=== PATIENT | male | born 1945 | race Caucasian/White ===

== ENCOUNTER 2016-12-24 12:05 | Inpatient (IN) | payer MEDICARE ==
--- NOTE | 2016-12-24 12:54 | ED ---
Dizziness HPI - General Chief Complaint: Dizziness Stated Complaint: Low Pulse-sent by Time Seen by Provider: 12/24/16 12:22 Source: patient, RN notes reviewed Mode of arrival: ambulatory Limitations: no limitations - History of Present Illness Initial Comments: This is a 71-year-old male with a history of hypertension states she's had dizziness for the past several days. He has any chest pain fevers chills nausea vomiting. He did state he recently started taking a double dose of his blood pressure medication he is also notices urine output is gone down last 2 days. He denies any other complaints at this time all over no chest pain fevers chills sweats no prior history of bradycardia. He was sent over from his doctor's office where he was noted to have a low heart rate. MD Complaint: dizziness - Related Data Home Medications Medication Instructions Recorded Confirmed Atorvastatin [Lipitor] 40 mg PO DAILY 01/29/15 01/29/15 Escitalopram [Lexapro] 20 mg PO DAILY 01/29/15 01/29/15 Folic Acid 0.4 mg PO DAILY 01/29/15 01/29/15 HYDROcodone/APAP 10-325MG [[place] 1 tab PO Q6H PRN 01/29/15 01/29/15 10] Isosorbide Mononitrate ER [Imdur] 30 mg PO DAILY 01/29/15 01/29/15 LORazepam [Ativan] 1 mg PO BID 01/29/15 01/29/15 Losartan Potassium [Cozaar] 100 mg PO DAILY 01/29/15 01/29/15 Nadolol 80 mg PO DAILY 01/29/15 01/29/15 Pantoprazole Sodium 20 mg PO DAILY 01/29/15 01/29/15 sulfaSALAzine [Azulfidine] 1,500 mg PO DAILY 01/29/15 01/29/15 Allergies Allergy/AdvReac Type Severity Reaction Status Date / Time tetracycline AdvReac FLARES UP Verified 12/24/16 12:07 CROHN'S Review of Systems ROS Statement: Those systems with pertinent positive or pertinent negative responses have been documented in the HPI. ROS Other: All systems not noted in ROS Statement are negative. Past Medical History Past Medical History: Coronary Artery Disease (CAD), Heart Failure, GERD/Reflux , Hypertension, Sleep Apnea/CPAP/BIPAP History of Any Multi-Drug Resistant Organisms: None Reported Past Surgical History: Appendectomy, Bowel Resection, Heart Catheterization, Tonsillectomy Additional Past Surgical History / Comment(s): bowel resection for Chron's disease with appendectomy included. Fractured left ankle in past. Past Anesthesia/Blood Transfusion Reactions: No Reported Reaction Past Psychological History: No Psychological Hx Reported Smoking Status: Former smoker Past Alcohol Use History: Daily Past Drug Use History: None Reported General Exam - General Exam Comments Initial Comments: This is a well-developed well-nourished awake alert oriented 3 male Limitations: no limitations General appearance: alert, in no apparent distress Head exam: Present: atraumatic, normocephalic, normal inspection Eye exam: Present: normal appearance, PERRL, EOMI. Absent: scleral icterus, conjunctival injection, periorbital swelling ENT exam: Present: normal exam, mucous membranes moist Neck exam: Present: normal inspection. Absent: tenderness, meningismus, lymphadenopathy Respiratory exam: Present: normal lung sounds bilaterally. Absent: respiratory distress, wheezes, rales, rhonchi, stridor Cardiovascular Exam: Present: normal rhythm, bradycardia, normal heart sounds. Absent: systolic murmur, diastolic murmur, rubs, gallop, clicks GI/Abdominal exam: Present: soft, normal bowel sounds. Absent: distended, tenderness, guarding, rebound, rigid Extremities exam: Present: normal inspection, full ROM, normal capillary refill. Absent: tenderness, pedal edema, joint swelling, calf tenderness Back exam: Present: normal inspection Neurological exam: Present: alert, oriented X3, CN II-XII intact Psychiatric exam: Present: normal affect, normal mood Skin exam: Present: warm, dry, intact, normal color. Absent: rash Course Vital Signs 12/24/16 12/24/16 12:08 13:15 Temperature 97.0 F L Pulse Rate 29 L 26 L Respiratory 18 16 Rate Blood Pressure 117/59 O2 Sat by Pulse 99 99 Oximetry - Reevaluation(s) Reevaluation #1: 12/24/16 13:52 Reevaluation revealed no change in patient's status. Reevaluation #2: 12/24/16 13:52 Patient did have pacer pads applied with the generator a bedside EKG Findings - EKG Results: EKG: interpreted by JOY (EKG shows evidence of a third-degree heart block with a rate of 28 QRS 136 daily since QTC is 702/478 red bundle-branch block pattern this appears consistent with the one submitted from his doctor's office.) Medical Decision Making - Medical Decision Making I did reevaluate patient several occasions he has no symptoms at this time. His heart rate still remains in the high 20s and low 30s. I did discuss the case with cardiology and with the admitting physician. Patient will be admitted for evaluation of third-degree heart block and bradycardia. - Lab Data Result diagrams: 12/24/16 12:39 12/24/16 12:39 Lab Results 12/24/16 12/24/16 12/24/16 Range/Units 12:39 12:39 12:39 WBC (3.8-10.6) k/uL RBC (4.30-5.90) m/uL Hgb (13.0-17.5) gm/dL Hct (39.0-53.0) % MCV (80.0-100.0) fL MCH (25.0-35.0) pg MCHC (31.0-37.0) g/dL RDW (11.5-15.5) % Plt Count (150-450) k/uL Neutrophils % % Lymphocytes % % Monocytes % % Eosinophils % % Basophils % % Neutrophils # (1.3-7.7) k/uL Lymphocytes # (1.0-4.8) k/uL Monocytes # (0-1.0) k/uL Eosinophils # (0-0.7) k/uL Basophils # (0-0.2) k/uL PT 10.9 (9.0-12.0) sec INR 1.1 (<1.2) APTT 23.4 (22.0-30.0) sec D-Dimer 0.69 H (<0.60) mg/L FEU Sodium 141 (137-145) mmol/L Potassium 4.5 (3.5-5.1) mmol/L Chloride 108 H (98-107) mmol/L Carbon Dioxide 25 (22-30) mmol/L Anion Gap 8 mmol/L BUN 20 (9-20) mg/dL Creatinine 1.05 (0.66-1.25) mg/dL Est GFR (MDRD) Af Amer >60 (>60 ml/min/1.73 sqM) Est GFR (MDRD) Non-Af >60 (>60 ml/min/1.73 sqM) Glucose 112 H (74-99) mg/dL Calcium 9.2 (8.4-10.2) mg/dL Magnesium 2.0 (1.6-2.3) mg/dL Total Bilirubin 0.9 (0.2-1.3) mg/dL AST 38 (17-59) U/L ALT 81 H (21-72) U/L Alkaline Phosphatase 59 (38-126) U/L Total Creatine Kinase 53 L (55-170) U/L CK-MB (CK-2) 0.7 (0.0-2.4) ng/mL CK-MB (CK-2) Rel Index 1.3 Troponin I <0.012 (0.000-0.034) ng/mL Total Protein 6.9 (6.3-8.2) g/dL Albumin 4.0 (3.5-5.0) g/dL TSH 2.070 (0.465-4.680) mIU/L 12/24/16 Range/Units 12:39 WBC 9.5 (3.8-10.6) k/uL RBC 4.51 (4.30-5.90) m/uL Hgb 15.0 (13.0-17.5) gm/dL Hct 43.5 (39.0-53.0) % MCV 96.6 (80.0-100.0) fL MCH 33.3 (25.0-35.0) pg MCHC 34.4 (31.0-37.0) g/dL RDW 13.2 (11.5-15.5) % Plt Count 179 (150-450) k/uL Neutrophils % 66 % Lymphocytes % 25 % Monocytes % 6 % Eosinophils % 2 % Basophils % 0 % Neutrophils # 6.2 (1.3-7.7) k/uL Lymphocytes # 2.3 (1.0-4.8) k/uL Monocytes # 0.6 (0-1.0) k/uL Eosinophils # 0.1 (0-0.7) k/uL Basophils # 0.0 (0-0.2) k/uL PT (9.0-12.0) sec INR (<1.2) APTT (22.0-30.0) sec D-Dimer (<0.60) mg/L FEU Sodium (137-145) mmol/L Potassium (3.5-5.1) mmol/L Chloride (98-107) mmol/L Carbon Dioxide (22-30) mmol/L Anion Gap mmol/L BUN (9-20) mg/dL Creatinine (0.66-1.25) mg/dL Est GFR (MDRD) Af Amer (>60 ml/min/1.73 sqM) Est GFR (MDRD) Non-Af (>60 ml/min/1.73 sqM) Glucose (74-99) mg/dL Calcium (8.4-10.2) mg/dL Magnesium (1.6-2.3) mg/dL Total Bilirubin (0.2-1.3) mg/dL AST (17-59) U/L ALT (21-72) U/L Alkaline Phosphatase (38-126) U/L Total Creatine Kinase (55-170) U/L CK-MB (CK-2) (0.0-2.4) ng/mL CK-MB (CK-2) Rel Index Troponin I (0.000-0.034) ng/mL Total Protein (6.3-8.2) g/dL Albumin (3.5-5.0) g/dL TSH (0.465-4.680) mIU/L - Radiology Data Radiology results: report reviewed (I did review the imaging and report no acute findings.), image reviewed Critical Care Time Critical Care Time: Yes Critical Care Time: 35 minutes of critical care time which includes monitoring the patient with initial history physical labs x-rays reevaluation the patient response to therapy. Discussion with the admitting service and consult. Admission orders and documentation of the above. Disposition Clinical Impression: Third degree heart block, Dizziness Disposition: ADMITTED IP TO THIS HOSP Condition: Stable Referrals: Patrick Davis MD [Primary Care Provider] - 1-2 days
[2016-12-24 12:56] LABS: Basophils % (A) 0 %; CH 32.7; Eosinophils # (A) 0.1 k/uL (0-0.7); Eosinophils % (A) 2 %; HCT 43.5 % (39.0-53.0); HDW 2.31; Luc % (Auto) 2; Lymphocytes # (A) 2.3 k/uL (1.0-4.8); Lymphocytes % (A) 25 %; MCH 33.3 pg (25.0-35.0); MCHC 34.4 g/dL (31.0-37.0); MCV 96.6 fL (80.0-100.0); Mean Platelet Volume 8.2; Monocytes # (A) 0.6 k/uL (0-1.0); Monocytes % (A) 6 %; Neutrophils # (A) 6.2 k/uL (1.3-7.7); Neutrophils % (A) 66 %; RBC 4.51 m/uL (4.30-5.90); RDW 13.2 % (11.5-15.5); WBC 9.5 k/uL (3.8-10.6); WBC (Perox) 9.88
[2016-12-24 13:01] LABS: ALT 81 U/L (21-72); AST 38 U/L (17-59); Alkaline Phosphatase 59 U/L (38-126); Anion Gap 8 mmol/L; Blood Urea Nitrogen 20 mg/dL (9-20); Calcium 9.2 mg/dL (8.4-10.2); Carbon Dioxide 25 mmol/L (22-30); Chloride 108 mmol/L (98-107); Glucose 112 mg/dL (74-99); Non-African American GFR(MDRD) >60 (>60 ml/min/1.73 sqM); Potassium 4.5 mmol/L (3.5-5.1); Sodium 141 mmol/L (137-145); Total Bilirubin 0.9 mg/dL (0.2-1.3); Total Protein 6.9 g/dL (6.3-8.2)
[2016-12-24 13:04] LABS: INR 1.1 (<1.2); Partial Thromboplastin Time 23.4 sec (22.0-30.0); Prothrombin Time 10.9 sec (9.0-12.0)
--- NOTE | 2016-12-24 13:10 | XR ---
EXAMINATION TYPE: XR chest 1V portable DATE OF EXAM: 12/24/2016 COMPARISON: January 29, 2015 HISTORY: Shortness of breath TECHNIQUE: Frontal and lateral views of the chest are obtained. FINDINGS: Scattered senescent parenchymal changes noted. Hyperinflation compatible with COPD. No evidence for infiltrate. No evidence for atelectasis. There is continued cardiomegaly. Mediastinal structures are stable and grossly unremarkable. No evidence for hilar prominence. Degenerative changes dorsal spine. IMPRESSION: 1. No evidence for acute pulmonary disease.
[2016-12-24 13:16] LABS: Creatine Kinase 53 U/L (55-170)
[2016-12-24 13:27] LABS: Creatine Kinase MB 0.7 ng/mL (0.0-2.4); Troponin I <0.012 ng/mL (0.000-0.034)
[2016-12-24] MEDS ORDERED: NALOXONE 0.4 MG/ML 1 ML VIAL IV PRN (13:55)
[2016-12-24] MEDS ORDERED: SODIUM CHLORIDE 0.9% 1,000 ML IV SCH (14:00)
--- NOTE | 2016-12-24 14:56 | P.CRDCN ---
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 He thought it was related to the heat, but finally went to see primary care physician today. Patient was found to be bradycardic and was referred to the emergency room. His EKG here confirmed presence of complete AV block with underlying rhythm showing right bundle-branch block pattern. Patient 's blood pressure is stable. He claims that in the past. He was told that he had left bundle-branch block pattern. He had cardiac cath about a year ago and apparently no significant issues were found at the time. Patient claims that he needs to be on nadolol for control of his intentional tremors. His heart rate is in the 20-30 range. We will proceed with a temporary pacemaker and possible permanent pacemaker within next 24-48 hours. 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 He denies any chest pain and doesn't appear to be having any difficulty with breathing at this time. Review of Systems REVIEW OF SYSTEMS: CONSTITUTIONAL:.. Alert, oriented and doesn't appear to be in acute distress. EYES: Denies diplopia, blurring of vision EARS, NOSE, MOUTH, THROAT: Denies headaches, denies sore throat. CARDIOVASCULAR: Denies chest pain, denies shortness of breath, denies palpitations RESPIRATORY: Denies shortness of breath, denies cough. GASTROINTESTINAL: Denies change in appetite, denies abdominal pain, denies diarrhea GENITOURINARY: Denies hematuria, denies infections. MUSKULOSKELETAL: Denies pain, denies swelling. Denies any cramps or claudication INTEGUMENTARY: Denies rash, denies eczema. NEUROLOGICAL: Denies focal weakness, or visual disturbance. Denies any dizziness or syncope PSYCHIATRIC: Denies anxiety, denies depression. HEMATOLOGIC/LYMPHATIC: Denies any bleeding, denies enlarged lymph nodes. Past Medical History Past Medical History: Coronary Artery Disease (CAD), Heart Failure, GERD/Reflux , Hypertension, Sleep Apnea/CPAP/BIPAP History of Any Multi-Drug Resistant Organisms: None Reported Past Surgical History: Appendectomy, Bowel Resection, Heart Catheterization, Tonsillectomy Additional Past Surgical History / Comment(s): bowel resection for Chron's disease with appendectomy included. Fractured left ankle in past. Past Anesthesia/Blood Transfusion Reactions: No Reported Reaction Past Psychological History: No Psychological Hx Reported Smoking Status: Former smoker Past Alcohol Use History: Daily Past Drug Use History: None Reported Medications and Allergies Home Medications Medication Instructions Recorded Confirmed Type Atorvastatin [Lipitor] 40 mg PO DAILY 01/29/15 12/24/16 History Escitalopram [Lexapro] 20 mg PO DAILY 01/29/15 12/24/16 History Isosorbide Mononitrate ER [Imdur] 30 mg PO DAILY 01/29/15 12/24/16 History LORazepam [Ativan] 1 mg PO TID 01/29/15 12/24/16 History Losartan Potassium [Cozaar] 100 mg PO DAILY 01/29/15 12/24/16 History Nadolol 80 mg PO DAILY 01/29/15 12/24/16 History Pantoprazole Sodium 20 mg PO DAILY 01/29/15 12/24/16 History sulfaSALAzine [Azulfidine] 1,500 mg PO DAILY 01/29/15 12/24/16 History Clopidogrel [Plavix] 75 mg PO DAILY 12/24/16 12/24/16 History Furosemide [Lasix] 40 mg PO DAILY 12/24/16 12/24/16 History oxyCODONE HCL/ACETAMINOPHEN 1 tab PO Q6HR PRN 12/24/16 12/24/16 History [Percocet 5-325 mg] Allergies Allergy/AdvReac Type Severity Reaction Status Date / Time tetracycline AdvReac FLARES UP Verified 12/24/16 12:07 CROHN'S Physical Exam Vitals: Vital Signs Temp Pulse Pulse Resp BP Pulse Ox 12/24/16 14:00 29 L 18 152/103 99 12/24/16 13:15 26 L 16 117/59 99 12/24/16 13:00 29 L 12/24/16 12:41 26 L 18 121/59 98 12/24/16 12:31 28 L 18 128/62 99 12/24/16 12:08 97.0 F L 29 L 18 99 Intake and Output 12/23/16 12/24/16 12/24/16 22:59 06:59 14:59 Other: Weight 104.326 kg Patient Weight 12/25/16 06:59 Weight 104.326 kg GENERAL EXAM: Patient is alert and oriented and doesn't appear to be in any acute distress HEENT: Normocephalic. Normal reaction of pupils, equal size, normal range of extraocular motion. No erythema or exudates in the throat. NECK: No masses, no nuchal rigidity. CHEST: No chest wall deformity. LUNGS: Equal air entry with no crackles or wheeze. HEART: S1 and S2 normal with no audible mumurs or gallops. Regular rhythm, femorals equal on both sides.. ABDOMEN: No hepatosplenomegaly, normal bowel sounds, no guarding or rigidity. SKIN: No rashes CENTRAL NERVOUS SYSTEM: No focal deficits. EXTREMITIES: No cyanosis, clubbing or edema. Results 12/24/16 12:39 12/24/16 12:39 Cardiac Enzymes 12/24/16 12/24/16 Range/Units 12:39 12:39 AST 38 (17-59) U/L CK-MB (CK-2) 0.7 (0.0-2.4) ng/mL Troponin I <0.012 (0.000-0.034) ng/mL Coagulation 12/24/16 Range/Units 12:39 PT 10.9 (9.0-12.0) sec APTT 23.4 (22.0-30.0) sec CBC 12/24/16 Range/Units 12:39 WBC 9.5 (3.8-10.6) k/uL RBC 4.51 (4.30-5.90) m/uL Hgb 15.0 (13.0-17.5) gm/dL Hct 43.5 (39.0-53.0) % Plt Count 179 (150-450) k/uL Comprehensive Metabolic Panel 12/24/16 Range/Units 12:39 Sodium 141 (137-145) mmol/L Potassium 4.5 (3.5-5.1) mmol/L Chloride 108 H (98-107) mmol/L Carbon Dioxide 25 (22-30) mmol/L BUN 20 (9-20) mg/dL Creatinine 1.05 (0.66-1.25) mg/dL Glucose 112 H (74-99) mg/dL Calcium 9.2 (8.4-10.2) mg/dL AST 38 (17-59) U/L ALT 81 H (21-72) U/L Alkaline Phosphatase 59 (38-126) U/L Total Protein 6.9 (6.3-8.2) g/dL Albumin 4.0 (3.5-5.0) g/dL Current Medications Generic Name Dose Route Start Last Admin Trade Name Freq PRN Reason Stop Dose Admin Sodium Chloride 1,000 mls @ 20 mls/hr 12/24/16 14:00 Saline 0.9% IV .Q24H AVA Naloxone HCl 0.2 mg 12/24/16 13:55 Narcan IV Q2M PRN Opioid Reversal Intake and Output 12/23/16 12/24/16 12/24/16 22:59 06:59 14:59 Other: Weight 104.326 kg Patient Weight 12/25/16 06:59 Weight 104.326 kg 12/24/16 12:39 12/24/16 12:39 EKG Interpretations (text) Complete AV dissociation with underlying ventricular rhythm showing right bundle -branch block Assessment and Plan (1) Ischemic heart disease Status: Acute (2) Dizziness Status: Acute (3) Third degree heart block Status: Acute (4) History of coronary artery stent placement Status: Acute (5) Essential tremor Status: Acute Plan: We will proceed with a temporary pacemaker today. We'll get an echocardiogram done. 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 Most probably proceed with permanent pacemaker within next 24-48 hours.
[2016-12-24] MEDS ORDERED: LIDOCAINE 2% INJ 20 MG/ML (20 ML MDV) ONE (15:03)
[2016-12-24] MEDS ORDERED: LIDOCAINE 2% INJ 20 MG/ML SQ ONE (15:19)
[2016-12-24] MEDS ORDERED: ceFAZolin 2 GM in SODIUM CHLORIDE 0.9% 100 ML IVPB ONE (15:52)
--- NOTE | 2016-12-24 15:56 | P.PCN ---
Date of Procedure: 12/24/16 Preoperative Diagnosis: Complete AV dissociation Postoperative Diagnosis: The same Procedure(s) Performed: Temporary pacemaker implantation Implants: Indications for Procedure: Operative Findings: Description of Procedure: This 71-year-old gentleman presented to the emergency room with complete AV dissociation and dizziness. Patient was brought to the lab in a fasting state. He was prepped and draped in the usual fashion. The right groin is infiltrated with lidocaine. Right femoral vein was entered using Seldinger technique. A 6-[place]ian sheath was advanced and placed in the femoral vein. A 5- [place] balloontipped temporary pacemaker wire was advanced and was placed near the apex of the ventricle. Satisfactory pacing thresholds were obtained. The lead was sutured to the floor. Patient is transferred to intensive care unit for further monitoring. Final impression. Successful implantation of temporal pacemaker. Plan: Permanent pacemaker implantation in the morning.
[2016-12-24 18:29] LABS: Glucose,Whole Blood 130 mg/dL (75-99)
[2016-12-24 18:55] LABS: Appearance,Urine Cloudy (Clear); Bacteria,Urine Many /hpf; Bilirubin,Urine Negative (Negative); Glucose,Urine (UA) Negative (Negative); Ketones,Urine Negative (Negative); Leukocyte Esterase,Urine Small (Negative); Mucus,Urine Rare /hpf; Nitrite,Urine Positive (Negative); PH, Urine 5.5 (5.0-8.0); Particle Count 32051; Protein,Urine Trace (Negative); RBC,Urine <1 /hpf (0-5); Specific Gravity,Urine 1.015 (1.001-1.035); Squamous Epithelial Cell,Urine <1 /hpf (0-4); UA Billing (MACRO vs. MICRO) MICRO; Urobilinogen,Urine <2.0 mg/dL (<2.0); WBC,Urine 7 /hpf (0-5)
[2016-12-24] MEDS: oxyCODONE-APAP 5-325MG 1 EACH TAB PO PRN (19:26)
[2016-12-24] MEDS: SODIUM CHLORIDE 0.9% 1,000 ML IV SCH ×2 (19:27)
[2016-12-24] MEDS: LORazepam 1 MG TAB PO SCH ×2 (19:28→22:07)
[2016-12-24 20:28] LABS: Anion Gap 9 mmol/L; Blood Urea Nitrogen 23 mg/dL (9-20); Carbon Dioxide 21 mmol/L (22-30); Chloride 110 mmol/L (98-107); Glucose 149 mg/dL (74-99); Non-African American GFR(MDRD) >60 (>60 ml/min/1.73 sqM); Potassium 4.1 mmol/L (3.5-5.1); Sodium 140 mmol/L (137-145)
[2016-12-24 21:32] VITALS: BMI 34.9
[2016-12-25] MEDS ORDERED: LORazepam 1 MG TAB PO PRN (00:45)
[2016-12-25] MEDS: oxyCODONE-APAP 5-325MG 1 EACH TAB PO PRN ×3 (01:28→16:04)
[2016-12-25] MEDS: ACETAMINOPHEN TAB 325 MG TAB PO PRN ×2 (02:37→15:01)
[2016-12-25] MEDS: PANTOPRAZOLE 40 MG TABLET PO SCH (05:04)
[2016-12-25] MEDS: ATORVASTATIN 40 MG TAB PO SCH (05:05)
[2016-12-25] MEDS: ESCITALOPRAM 20 MG TAB PO SCH (05:05)
[2016-12-25] MEDS: LORazepam 1 MG TAB PO SCH ×3 (05:06→21:58)
[2016-12-25] MEDS: sulfaSALAzine 500 MG TAB PO SCH (05:06)
[2016-12-25] MEDS: FUROSEMIDE 40 MG TAB PO SCH ×2 (05:06→13:12)
[2016-12-25] MEDS: LOSARTAN 50 MG TAB PO SCH (05:06)
[2016-12-25] MEDS: ISOSORBIDE MONONITRATE ER 30 MG TAB.ER.24H PO SCH (05:06)
[2016-12-25 05:23] LABS: Basophils % (A) 0 %; CHCM 32.9; Eosinophils # (A) 0.1 k/uL (0-0.7); Eosinophils % (A) 1 %; HCT 41.8 % (39.0-53.0); HDW 2.23; HGB 14.1 gm/dL (13.0-17.5); Luc # (Auto) 0.12; Luc % (Auto) 1; Lymphocytes # (A) 1.5 k/uL (1.0-4.8); Lymphocytes % (A) 15 %; MCHC 33.7 g/dL (31.0-37.0); MCV 100.8 fL (80.0-100.0); Macrocytosis Slight; Mean Platelet Volume 8.6; Monocytes # (A) 0.6 k/uL (0-1.0); Monocytes % (A) 7 %; Neutrophils # (A) 7.5 k/uL (1.3-7.7); Neutrophils % (A) 76 %; RBC 4.15 m/uL (4.30-5.90); RDW 14.2 % (11.5-15.5); WBC 9.8 k/uL (3.8-10.6); WBC (Perox) 10.09
[2016-12-25 05:33] LABS: Blood Urea Nitrogen 21 mg/dL (9-20); Calcium 8.8 mg/dL (8.4-10.2); Carbon Dioxide 24 mmol/L (22-30); Glucose 106 mg/dL (74-99); Non-African American GFR(MDRD) >60 (>60 ml/min/1.73 sqM); Potassium 4.3 mmol/L (3.5-5.1); Sodium 141 mmol/L (137-145)
[2016-12-25 05:37] LABS: Anion Gap 8 mmol/L; Chloride 109 mmol/L (98-107)
[2016-12-25] MEDS ORDERED: ceFAZolin 1,000 MG in SODIUM CHLORIDE 0.9% IRRIGATIO 250 ML IRRIGATION ONE (06:30)
[2016-12-25] MEDS ORDERED: ceFAZolin 2 GM in SODIUM CHLORIDE 0.9% 100 ML IVPB ONE (06:30)
--- NOTE | 2016-12-25 07:28 | XR ---
EXAMINATION TYPE: XR chest 1V portable DATE OF EXAM: 12/25/2016 HISTORY: Line placement. REFERENCE: Previous study dated 12/24/2016. FINDINGS: The heart is enlarged. The lungs are clear. Pleural space are clear. IMPRESSION: CONTINUING CARDIOMEGALY.
[2016-12-25] MEDS ORDERED: IV FLUID CONTINUATION 1,000 ML IV ONE ×2 (07:29)
[2016-12-25] MEDS ORDERED: fentaNYL (PF) 50 MCG/ML 2 ML AMP ONE (07:42)
[2016-12-25] MEDS ORDERED: MIDAZOLAM 2 MG/2 ML VIAL ONE (07:42)
[2016-12-25] MEDS ORDERED: MIDAZOLAM 2 MG/2 ML VIAL IV ONE (08:00)
[2016-12-25] MEDS: fentaNYL (PF) 50 MCG/ML 2 ML AMP IV ONE ×3 (08:01→09:17)
[2016-12-25] MEDS ORDERED: LIDOCAINE 1% INJ 10MG/ML (20 ML MDV) SQ ONE (08:11)
[2016-12-25] MEDS: LIDOCAINE 1% INJ 10MG/ML (20 ML MDV) SQ ONE ×2 (08:18→08:51)
--- NOTE | 2016-12-25 09:28 | P.PCN ---
Date of Procedure: 12/25/16 Preoperative Diagnosis: Complete A-V dissociation and the severe bradycardia Postoperative Diagnosis: The same Procedure(s) Performed: Axillary venography, dual-chamber permanent pacemaker implantation under fluoroscopy. Implants: Indications for Procedure: Operative Findings: Description of Procedure: HISTORY: This is a 71-year-old gentleman with history of ischemic heart disease with previous bypass surgery and stent placement who presented to the emergency room with complaints of dizziness and evidence of complete AV block. Patient has a right bundle branch pattern escape rhythm. He gives history of having left bundle-branch block, in the past. Patient is also being treated with nadolol for essential tremor and also for ischemic heart disease. Patient is advised to have permanent pacemaker implantation. Patient had a temporary pacemaker, Yesterday. CONSENT:I have discussed the risks, benefits and alternative therapies for the above-mentioned procedure and for both sedation/analgesia as well as necessary blood product administration, if indicated, as they pertain to this patient. The patient has indicated understanding and acceptance of the risks and procedures discussed.. CONSCIOUS SEDATION: Patient was given IV Versed 1 mg and fentanyl 100 g. The duration of the sedation was 51 minutes. PROCEDURE: Patient was brought to the lab in a fasting state. Patient was prepped and draped in the usual fashion. Patient was given IV sedation with fentanyl and Versed. The skin below the left clavicle was infiltrated with lidocaine. An incision was made parallel to deltopectoral groove was deepened until the pectoral fascia was exposed. A pocket was created by blunt dissection and cautery. Axillary venography was performed to delineate the course of the axillary vein. 2 sticks were performed into extrathoracic portion of the axillary vein and 2 sheaths were advanced over the guidewires and left in subclavian vein. LEADS: ATRIAL: This is manufactured by [email or web address]. Model number is 7741. And the serial number is [id number] VENTRICULAR: [This is manufactured by [email or web address]. Model number is 7742. Serial number is [id number] The ventricular lead is maneuvered l with help of a straight and curved stylets into the left ventricle apical region. Satisfactory position was obtained and threshold measurements were made. The atrial lead was then maneuvered into the right atrial appendage. And thresholds were obtained. THRESHOLDS: ATRIUM: . The minimum patient threshold is a 0.6 V at pulse width of 0.5 ms. Impedance is 725 ohms. P-wave: 4.3 mV VENTRICLE: The minimum patient threshold is 0.7 at pulse width of 0.5 ms. The impedance is 1110 ohms. R-wave: Patient beat. The leads and pulse generator remained in the pocket after it was washed with antibiotics. Pocket was closed in the usual fashion. The fascia was closed with 2-0 Prolene ,the subcutaneous tissue was closed with 3-0 Prolene and the skin was closed with 4-0 Prolene. PROGRAMMING: MODE: DDD RATE: [60-120 OUTPUT: At[facility] : 3.5 V at pulse width of 0.5 ms. Ventricle: 3.5 V at a pulse width of 0.5 ms FINAL IMPRESSION: 1. Axillary venography #2. Insertion of dual-chamber pacemaker COMPLICATIONS: Nil PLAN: [Patient will be monitored on the telemetry unit for the next 24 hours. Prophylactic antibiotics to be continued. Chest x-ray in the morning. Possible discharge within next 24 hours.
[2016-12-25] MEDS: FOLIC ACID 1 MG TAB PO SCH (12:32)
--- NOTE | 2016-12-25 13:22 | HP ---
DATE OF ADMISSION: 12/24/16 CHIEF COMPLAINT: Dizziness. HISTORY OF PRESENT ILLNESS: This 71-year-old gentleman with a past medical history of multiple medical problems including history of CAD, history of GERD, hypertension, history of pneumonia, history of being followed by Dr. Patrick Davis in the outpatient setting, was found to have dizziness and was found to have bradycardia at physicians office and referred to [facility]. found to have complete heart block with right bundle branch block pattern and heart rate in the 30s and 40s. Temporary pacemaker inserted by Dr. Oliver and permanent pacemaker being planned. There is no history of fever, rigors or chills. No history of headache. There is no history of loss of consciousness or seizures at this time. Past medical history of CAD, GERD, hypertension, obstructive sleep apnea, history of appendectomy, bowel resection, history of coronary artery disease/ stent. Medications prior to admission are: Home medications are reviewed and include: 1. Nadolol 40 mg po daily. 2. Folic acid 1 mg daily. 3. Cozaar 100 mg daily. 4. Ativan 1 mg po t.i.d. 5. Plavix 75 mg daily. 7. Oxycodone 5 mg q6h prn. 8. Lasix 40 mg po daily. 9. Protonix 20 mg po daily. 10. Imdur 30 mg po daily. 11. Lexapro 20 mg daily. 12. Lipitor 40 mg po daily. ALLERGIES: TETRACYCLINE. FAMILY HISTORY: History of cancer in the family. SOCIAL HISTORY: History of alcohol. Previous history of smoking. REVIEW OF SYSTEMS: HEENT: Diminished vision. Diminished hearing. Cardiovascular system: As mentioned earlier. Respiratory: No cough, hemoptysis. GI: As mentioned earlier. History of Crohns. : No dysuria. Nervous system: No numbness, weakness. Allergy/Immunology: No asthma or hayfever. Musculoskeletal: As mentioned earlier. Hematology/oncology: No history of anemia. Endocrine. No history of diabetes or hypothyroidism. Constitutional: As mentioned earlier. Dermatology: Negative. Rheumatology: Negative. Psychiatry: As mentioned earlier. PHYSICAL EXAMINATION: The patient is alert and oriented times three. Pulse 89. Blood pressure 102/43. Respiratory rate 18, temperature 97.7. Pulse ox 94% on room air. HEENT: Conjunctivae normal. Oral mucosa moist. NECK: No JVD. No carotid bruit. No lymph node enlargement. Cardiovascular: S1, S2 muffled. Bradycardic. Ejection systolic murmur. Respiratory: Breath sounds diminished at the bases. No rhonchi and no crackles. Abdomen is soft. Abdomen is status post surgery. Abdominal wall swelling present. No mass palpable. No guarding. No rigidity. Legs: No edema. No swelling. Nervous system: Higher functions as mentioned earlier. Moves all four limbs. No focal deficits. Lymphatics: No lymph nodes palpable in the neck, axillae or groin. Temporary pacemaker present right groin. SKIN: No ulcer, rash or bleeding. LABS: CBC within normal limits. Glucose 112, 130. UA 7 WBCs. ASSESSMENT: 1. Complete heart block and AV dissociation status post temporary pacemaker implantation. 2. History of coronary artery disease. 3. History of gastroesophageal reflux disease. 4. Hypertension. 5. History of pneumonia. 6. History of sleep apnea. 7. Rule out UTI. 8. History of diverticulitis, perforation, history of Crohns disease. 9. History of coronary artery disease/stent. 10. History of degenerative joint disease. 11. Remote history of nicotine dependence. 12. History of ETOH. RECOMMENDATIONS AND DISCUSSION: In this 71-year-old gentleman who presented with multiple complex medical issues, we will monitor the patient closely. Continue the current medications. Continue symptomatic treatment. Otherwise , at this time, I recommend follow closely with cardiology. Repeat labs. Monitor electrolytes closely. I would also recommend prn Ativan. Otherwise, prognosis is guarded because of the multiple complex medical issues. Further recommendations to follow. Nadolol and beta blockers are being stopped at this time. We will continue Folic acid. Watch for any alcohol withdrawal symptoms. MTDD
[2016-12-25] MEDS: ceFAZolin 2 GM in SODIUM CHLORIDE 0.9% 100 ML IVPB SCH ×2 (14:57→21:58)
[2016-12-25] MEDS: SODIUM CHLORIDE 0.9% 1,000 ML IV SCH ×2 (16:52)
[2016-12-25] MEDS: HYDROmorphone 1 MG/ML 1 ML SYRINGE IVP PRN ×2 (19:19→23:23)
[2016-12-26] MEDS: oxyCODONE-APAP 5-325MG 1 EACH TAB PO PRN ×2 (01:21→06:54)
[2016-12-26] MEDS: PANTOPRAZOLE 40 MG TABLET PO SCH (06:50)
--- NOTE | 2016-12-26 08:14 | PN ---
DATE OF SERVICE: 12/25/16 This 71-year-old gentleman admitted with complete AV dissociation, history of bradycardia, underwent dual chamber permanent pacemaker implantation by Dr. Larsen. There is no history of fever. No history of headache, loss of consciousness. No chest pain. No palpitations. No fever. Past medical history reviewed. Review of system: Cardiovascular: As mentioned earlier. Respiratory: As mentioned earlier. GI: Nausea or vomiting. : No dysuria. Nervous system: No numbness, weakness. Current medications are reviewed and include: 1. Tylenol 650 q6h prn. 2. Lipitor 40 mg po daily. 3. Cefazolin 2 gm IV q8. 4. Lexapro. 5. Folic acid. 6. Lasix. 7. Imdur. 8. Ativan. 9. Cozaar 100 mg daily. 10. Corgard. 11. Narcan. 12. Percocet 5 mg. PHYSICAL EXAMINATION: The patient is alert and oriented times three. Pulse 64. Blood pressure 110/47. Respiratory rate 24. Temperature 98.7. Pulse ox 97% on room air. HEENT: Conjunctivae normal. Oral mucosa moist. NECK: No JVD. No carotid bruit. No lymph node enlargement. Cardiovascular: S1, S2 muffled. Respiratory: Breath sounds diminished at the bases. Bilateral scattered rhonchi and crackles. Abdomen soft. Nontender. Legs, no edema. No swelling. Nervous system : Higher functions as mentioned earlier. Moves all four limbs. No focal deficits. Lymphatics: No lymph nodes palpable in the neck, axillae and groin. Labs: Hemoglobin 14.1, glucose 179. ASSESSMENT: 1. Acute bradycardia, with complete AV dissociation status post dual chamber pacemaker implantation. 2. History of coronary artery disease. 3. History of gastroesophageal reflux disease. 4. Hypertension. 5. History of pneumonia. 6. History of sleep apnea. RECOMMENDATIONS AND DISCUSSION: Recommend to continue the current medications. Continue with monitoring and symptomatic treatment. Otherwise, at this time, continue with monitoring and permanent pacemaker implantation. Nadolol could be stopped at this time. Closely follow with cardiology. Further recommendations to follow. Recommend to follow the patient closely with Dr. Davis in the outpatient setting. [facility]
[2016-12-26] MEDS: ceFAZolin 2 GM in SODIUM CHLORIDE 0.9% 100 ML IVPB SCH ×2 (08:38→14:03)
[2016-12-26] MEDS: LORazepam 1 MG TAB PO SCH (08:39)
[2016-12-26] MEDS: ISOSORBIDE MONONITRATE ER 30 MG TAB.ER.24H PO SCH (08:39)
[2016-12-26] MEDS: sulfaSALAzine 500 MG TAB PO SCH (08:39)
[2016-12-26] MEDS: FUROSEMIDE 40 MG TAB PO SCH (08:39)
[2016-12-26] MEDS: ATORVASTATIN 40 MG TAB PO SCH (08:39)
[2016-12-26] MEDS: ESCITALOPRAM 20 MG TAB PO SCH (08:39)
[2016-12-26] MEDS: FOLIC ACID 1 MG TAB PO SCH (08:39)
[2016-12-26] MEDS: LOSARTAN 50 MG TAB PO SCH (08:39)
--- NOTE | 2016-12-26 08:50 | XR ---
EXAMINATION TYPE: XR chest 2V DATE OF EXAM: 12/26/2016 COMPARISON: Prior chest x-ray 12/25/2016 HISTORY: Lead placement check TECHNIQUE: Frontal and lateral views of the chest are obtained. FINDINGS: There is been interval placement of a left pectoral generator, leads are present within th e right atrium and ventricle. Prominent lung volume may be indicative of COPD. No pneumothorax or ple ural effusion. Heart remains enlarged. Interstitium is increased. IMPRESSION: No interval complication status post pacemaker placement.
[2016-12-26] MEDS ORDERED: NADOLOL 20 MG TAB PO SCH (09:00)
[2016-12-26 12:04] VITALS: BP 158/79; PULSE 60; RESP 20; TEMP 97
--- NOTE | 2016-12-26 12:20 | P.PN ---
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 He thought it was related to the heat, but finally went to see primary care physician today. Patient was found to be bradycardic and was referred to the emergency room. His EKG here confirmed presence of complete AV block with underlying rhythm showing right bundle-branch block pattern. Patient 's blood pressure is stable. He claims that in the past. He was told that he had left bundle-branch block pattern. He had cardiac cath about a year ago and apparently no significant issues were found at the time. Patient claims that he needs to be on nadolol for control of his intentional tremors. His heart rate was in the 20-30 range. Patient underwent implantation of a permanent pacemaker yesterday by Dr. Oliver. Device was interrogated this morning and is functioning appropriately. Chest x-ray was reviewed she did not reveal any evidence of a pneumothorax. Objective - Vital Signs Vital signs: Vital Signs Temp 97 F L 12/26/16 11:00 Pulse 60 12/26/16 11:00 Resp 20 12/26/16 11:00 BP 158/79 12/26/16 11:00 Pulse Ox 94 L 12/26/16 11:00 Intake & Output 12/25/16 12/26/16 12/26/16 18:59 06:59 18:59 Intake Total 1575 458 Output Total 900 1 Balance 675 -1 458 Weight 108.6 kg 111 kg Intake: IV 590 60 Sodium Chloride 0.9% 1, 20 000 ml @ 20 mls/hr IV . Q24H AVA Rx#:[id number] Sodium Chloride 0.9% 1, 220 60 000 ml @ 20 mls/hr IV . Q24H AVA Rx#:[id number] Intake, IV Titration 100 100 Amount ceFAZolin 2 gm In Sodium 100 100 Chloride 0.9% 100 ml @ 100 mls/hr IVPB Q6H AVA Rx#:[id number] Oral 885 298 Output: Urine 900 1 Other: Voiding Method Urinal Urinal # Voids 1 1 - Exam PHYSICAL EXAMINATION: HEENT: Head is atraumatic, normocephalic. Pupils equal, round. Neck is supple. There is no elevated jugular venous pressure. HEART EXAMINATION: Heart S1, S2 normal. No murmur or gallop heard. CHEST EXAMINATION: Lungs are clear to auscultation and precussion. No chest wall tenderness is noted on palpation or with deep breathing. Site of pacemaker implantation, dressing is dry and intact. ABDOMEN: Soft, nontender. Bowel sounds are heard. No organomegaly noted. EXTREMITIES: 2+ peripheral pulses with no evidence of peripheral edema and no calf tenderness noted. NEUROLOGIC patient is awake, alert and oriented -3. . - Labs CBC & Chem 7: 12/25/16 04:41 12/25/16 04:41 Assessment and Plan (1) Essential tremor Status: Acute (2) Pacemaker Status: Acute (3) Dizziness Status: Acute (4) History of coronary artery stent placement Status: Acute (5) Ischemic heart disease Status: Acute (6) Third degree heart block Status: Acute Plan: From cardiology's perspective, patient may be able to be discharged home today. We will make him an appointment in the device clinic and with Dr. Oliver in one week. He will go home on 3 days of antibiotics. DNP note has been reviewed, I agree with a documented findings and plan of care. Patient was seen and examined.
--- NOTE | 2016-12-26 13:53 | P.DS ---
Providers Date of admission: 12/24/16 13:55 Attending physician: Baudilio Lawson MD Consults: 12/24/16 13:55 Consult Physician Stat Consulting Provider: Gómez Oliver Consult Reason/Comments: Heart block Do you want consulting provider notified?: Already Contacted Primary care physician: [facility] Course: This 71-year-old gentleman was admitted with bradycardia with AV dissociation. Cardiology saw the patient and pacemaker was implemented. The patient was significantly. On exam vitals are stable. Cardio system S1-S2 normal. Breath sounds normal. Abdomen soft nontender. Patient be discharged in stable condition with guarded prognosis after cardiology clearance. Assessment 1. Acute bradycardia with incomplete AV dissociation status post dual-chamber pacemaker implantation 2. Coronary artery disease 3. GERD 4. Hypertension 5. History of pneumonia 6. Sleep apnea Patient Condition at Discharge: Stable Plan - Discharge Summary New Discharge Prescriptions: Continue LORazepam [Ativan] 1 mg PO TID Isosorbide Mononitrate ER [Imdur] 30 mg PO DAILY sulfaSALAzine [Azulfidine] 1,500 mg PO DAILY Pantoprazole Sodium 20 mg PO DAILY Nadolol 40 mg PO DAILY Escitalopram [Lexapro] 20 mg PO DAILY Losartan Potassium [Cozaar] 100 mg PO DAILY Atorvastatin [Lipitor] 40 mg PO DAILY oxyCODONE HCL/ACETAMINOPHEN [Percocet 5-325 mg] 1 tab PO Q6HR PRN PRN Reason: Pain Furosemide [Lasix] 40 mg PO DAILY Folic Acid 1 mg PO DAILY Clopidogrel [Plavix] 75 mg PO DAILY #0 Discharge Medication List Atorvastatin [Lipitor] 40 mg PO DAILY 01/29/15 [History] Escitalopram [Lexapro] 20 mg PO DAILY 01/29/15 [History] Isosorbide Mononitrate ER [Imdur] 30 mg PO DAILY 01/29/15 [History] LORazepam [Ativan] 1 mg PO TID 01/29/15 [History] Losartan Potassium [Cozaar] 100 mg PO DAILY 01/29/15 [History] Nadolol 40 mg PO DAILY 01/29/15 [History] Pantoprazole Sodium 20 mg PO DAILY 01/29/15 [History] sulfaSALAzine [Azulfidine] 1,500 mg PO DAILY 01/29/15 [History] Folic Acid 1 mg PO DAILY 12/24/16 [History] Furosemide [Lasix] 40 mg PO DAILY 12/24/16 [History] oxyCODONE HCL/ACETAMINOPHEN [Percocet 5-325 mg] 1 tab PO Q6HR PRN 12/24/16 [ History] Clopidogrel [Plavix] 75 mg PO DAILY #0 12/26/16 [Rx] Follow up Appointment(s)/Referral(s): Patrick Davis MD [Primary Care Provider] - 3 Days Ambulatory/Diagnostic Orders: Complete Blood Count w/diff [LAB.AMB] Time Frame: 3 Days, Location: Determined By Patient Activity/Diet/Wound Care/Special Instructions: Final DC recommendations and clearance from cardiology pending. Confirm cardiology follow-up appointment per to discharge Diet: Cardiac Activity: Limited until follow up
[2016-12-26] MEDS ORDERED: ceFAZolin 2 GM in SODIUM CHLORIDE 0.9% 100 ML IVPB ONE (14:00)
[2016-12-26] MEDS ORDERED: CEPHALEXIN 500 MG CAP PO SCH (16:00)
== END 2016-12-26 15:36 | disposition home or self-care (01) | DRG 244 ==
LOC: EC 12:05 → 6SEL 13:55 → 6ICU 14:42 → 6SEL 12-25 16:27
PROVIDERS: ADMIT Internal Medicine; ATTEND Internal Medicine
PROC: 5A1213Z Performance of Cardiac Pacing, Intermittent (ICD-10-PCS; 2016-12-24)
PROC: 02H63JZ Insertion of Pacemaker Lead into Right Atrium, Percutaneous Approach (ICD-10-PCS; 2016-12-25)
PROC: 02HK3JZ Insertion of Pacemaker Lead into Right Ventricle, Percutaneous Approach (ICD-10-PCS; 2016-12-25)
PROC: 0JH606Z Insertion of Pacemaker, Dual Chamber into Chest Subcutaneous Tissue and Fascia, Open Approach (ICD-10-PCS; principal; 2016-12-25 07:30)
DX: I44.2 Atrioventricular block, complete (principal); I11.0 Hypertensive heart disease with heart failure; I50.9 Heart failure, unspecified; I45.2 Bifascicular block; G47.33 Obstructive sleep apnea (adult) (pediatric); I25.10 Atherosclerotic heart disease of native coronary artery without angina pectoris; M19.90 Unspecified osteoarthritis, unspecified site; H54.7 Unspecified visual loss; K21.9 Gastro-esophageal reflux disease without esophagitis; H91.90 Unspecified hearing loss, unspecified ear; R53.83 Other fatigue; G25.0 Essential tremor; G25.2 Other specified forms of tremor; Z87.01 Personal history of pneumonia (recurrent); Z79.899 Other long term (current) drug therapy; Z79.02 Long term (current) use of antithrombotics/antiplatelets; Z87.891 Personal history of nicotine dependence; Z95.5 Presence of coronary angioplasty implant and graft; Z80.9 Family history of malignant neoplasm, unspecified; Z90.49 Acquired absence of other specified parts of digestive tract; Z88.1 Allergy status to other antibiotic agents; Z86.19 Personal history of other infectious and parasitic diseases; Z87.19 Personal history of other diseases of the digestive system; Z87.81 Personal history of (healed) traumatic fracture; Z79.891 Long term (current) use of opiate analgesic; Z95.1 Presence of aortocoronary bypass graft; Z72.89 Other problems related to lifestyle
CPT/HCPCS: 33208; 33210; 36415; 71010; 71020; 80048; 80053; 81001; 82550; 82553; 83735; 84100; 84443; 84484; 85025; 85379; 85610; 85730; 93005; 99291